=== PATIENT | female | born 1975 | race African-American/Black ===

== ENCOUNTER 2018-03-08 15:21 | Emergency (ER) | payer OTHER ==
--- NOTE | 2018-03-08 16:20 | RAD ---
INDICATION: Chest pain. COMPARISON: There are no prior studies available for comparison. TECHNIQUE: Dual-energy PA and lateral views of the chest were obtained. FINDINGS: The heart is within normal limits in size. Mediastinal and hilar contours appear within normal limits. The lungs are clear. No pleural effusion or pneumothorax is seen. IMPRESSION: NO EVIDENCE FOR ACTIVE CARDIOPULMONARY DISEASE.
[2018-03-08 17:05] LABS: ABS Basophils 0.1 10^3/ul (0-0.2); ABS Eosinophils 0 10^3/ul (0-0.6); ABS Lymphocytes 2.2 10^3/ul (1.0-4.8); ABS Monocytes 0.4 10^3/ul (0-0.8); ABS Neutrophils 7.2 10^3/ul (1.5-7.7); ABS Nucleated RBC 0 10^3/ul; Eosinophil % 0.4 % (0-6); Hematocrit 39 % (35-47); Hemoglobin 13.4 g/dl (12.0-16.0); Lymphocyte % 22.6 % (25-47); Mean Corpuscular HGB Conc 34 g/dl (31-36); Mean Corpuscular Hemoglobin 31 pg (27-31); Mean Corpuscular Volume 89 fL (80-97); Mean Platelet Volume 6.8 um3 (7.4-10.4); Nucleated Red Blood Cells % 0.1; Platelet Count 327 10^3/ul (150-450); Red Blood Count 4.37 10^6/ul (4.0-5.4); Red Cell Distribution Width 13 % (10.5-15)
[2018-03-08 17:09] LABS: EGFR Non-African American 82.6 (>60)
[2018-03-08] MEDS ORDERED: Famotidine TAB* 20 MG PO ONE (17:12)
[2018-03-08] MEDS ORDERED: Al Hydrox/Mg Hydrox/Simet LIQ* 30 ML UDC PO ONE (17:12)
[2018-03-08] MEDS ORDERED: Aspirin 81 mg CHEW TAB* 81 MG TAB.CHEW PO ONE (17:13)
--- NOTE | 2018-03-08 18:21 | ED ---
Markus Ma Thomas, scribed for Rommel Vega MD on 03/08/18 at 1712 . HPI Chest Pain - HPI Summary HPI Summary: The patient is a 42 year old female who was leaving a meeting today when she began to experience chest pain. The pain is worsened with touch. Past medical history includes esophageal burn due to taking Zoloft. She describes her current pain as similar to the prior esophageal burn pain. The patient also complains jaw pain and feeling woozy. The patient denies back pain, weight gain, or weight loss. - History of Current Complaint Chief Complaint: EDChestPainROMI Time Seen by Provider: 03/08/18 17:03 Hx Obtained From: Patient Onset/Duration: Started Hours Ago, Still Present Timing: Constant Current Severity: Mild Pain Intensity: 2 Pain Scale Used: 0-10 Numeric Chest Pain Radiates: Yes Chest Pain Radiates To:: Jaw Associated Signs and Symptoms: Positive: Negative - back pain, weight gain, weight loss, Other: - Jaw pain - Allergy/Home Medications Allergies/Adverse Reactions: Allergies Allergy/AdvReac Type Severity Reaction Status Date / Time No Known Allergies Allergy Verified 07/08/17 09:41 Home Medications: Home Medications Ascorbic Acid TAB* [Vitamin C TAB*] 500 mg PO DAILY 03/08/18 [History Confirmed 03/08/18] Multivitamins/Minerals TAB* [Theragran/minerals TAB*] 1 tab PO DAILY 03/08/18 [ History Confirmed 03/08/18] PMH/Surg Hx/FS Hx/Imm Hx Endocrine/Hematology History: Denies: Hx Diabetes Cardiovascular History: Denies: Hx Hypercholesterolemia, Hx Hypertension Sensory History: Denies: Hx Legally Blind Infectious Disease History: No Infectious Disease History: Denies: Traveled Outside the [place] in Last 30 Days - Family History Known Family History: Negative: Cardiac Disease - Social History Occupation: Employed Full-time Alcohol Use: None Substance Use Type: Reports: None Hx Tobacco Use: Yes Smoking Status (MU): Heavy Every Day Tobacco Smoker Type: Cigarettes Amount Used/How Often: 10 A DAY Length of Time of Smoking/Using Tobacco: 17 Have You Smoked in the Last Year: Yes Review of Systems Negative: Fever, Other - weight pain or loss Positive: Chest Pain Positive: Other - Jaw pain; NEGATIVE: back pain All Other Systems Reviewed And Are Negative: Yes Physical Exam - Summary Physical Exam Summary: Appearance: Well appearing, no pain distress Skin: warm, dry, reflects adequate perfusion Head/face: normal Eyes: EOMI, EVARISTO ENT: normal Neck: supple, non-tender Respiratory: CTA, breath sounds present Cardiovascular: RRR, pulses symmetrical Chest: Slightly reproduced tenderness in anterior chest. Abdomen: non-tender, soft Bowel Sounds: present Musculoskeletal: normal, strength/ROM intact Neuro: normal, sensory motor intact, A&Ox3 Triage Information Reviewed: Yes Vital Signs On Initial Exam: Initial Vitals Temp Pulse Resp BP Pulse Ox 97.8 F 84 16 117/86 95 03/08/18 15:24 03/08/18 15:24 03/08/18 15:24 03/08/18 15:24 03/08/18 15:24 Vital Signs Reviewed: Yes Diagnostics - Vital Signs Vital Signs Temp Pulse Resp BP Pulse Ox 03/08/18 16:48 98.6 F 70 20 118/86 100 03/08/18 15:24 97.8 F 84 16 117/86 95 - Laboratory Lab Results: Lab Results 03/08/18 Range/Units 16:35 WBC 10.0 (3.5-10.8) 10^3/ul RBC 4.37 (4.0-5.4) 10^6/ul Hgb 13.4 (12.0-16.0) g/dl Hct 39 (35-47) % MCV 89 (80-97) fL MCH 31 (27-31) pg MCHC 34 (31-36) g/dl RDW 13 (10.5-15) % Plt Count 327 (150-450) 10^3/ul MPV 6.8 L (7.4-10.4) um3 Neut % (Auto) 72.4 (38-83) % Lymph % (Auto) 22.6 L (25-47) % [place] % (Auto) 3.9 (0-7) % Eos % (Auto) 0.4 (0-6) % Baso % (Auto) 0.7 (0-2) % Absolute Neuts (auto) 7.2 (1.5-7.7) 10^3/ul Absolute Lymphs (auto) 2.2 (1.0-4.8) 10^3/ul Absolute Monos (auto) 0.4 (0-0.8) 10^3/ul Absolute Eos (auto) 0 (0-0.6) 10^3/ul Absolute Basos (auto) 0.1 (0-0.2) 10^3/ul Absolute Nucleated RBC 0 10^3/ul Nucleated RBC % 0.1 Result Diagrams: 03/08/18 16:35 03/08/18 16:35 Lab Statement: Any lab studies that have been ordered have been reviewed, and results considered in the medical decision making process. - Radiology CXR Xray Interpretation: No Acute Changes - Impression: No active cardiopulmonary disease. Dr. Vega has reviewed this report. Radiology Interpretation Completed By: Radiologist - EKG 15:29 Cardiac Rate: NL EKG Rhythm: Sinus Rhythm - at 78 BPM EKG Interpretation: Normal axis, normal intervals, and normal ST. Poor R wave progression. Re-Evaluation - Re-Evaluation First Eval Re-Evaluation Time: 18:07 Change: Improved Comment: She does not have any symptoms at this time. Chest Pain Course/Dx - Course Course Of Treatment: HEART score is 1. THOMAS risk index is 10 (low risk). EKG is wnl. Labs are benign. Pt has a hx of esophagitis and pain feels "exactly the same." It is sharp and spasmotic in the xiphoid area. Her sx have relieved here and she would like to discharge. Rx for pepcid/carafate that helped her in the past. Low risk from HEART/THOMAS standpoint. D/C to f/u with PMD. - Chest Pain Differential Diagnosis/HQI/PQRI: Acute LA, ACS, Angina, CHF, Chest Wall, GI Disease, Lower Respiratory Infection - Diagnoses Provider Diagnoses: Atypical chest pain, Esophagitis Discharge - Sign-Out/Discharge Documenting (check all that apply): Discharge - Discharge Plan Condition: Stable Disposition: HOME Prescriptions: Famotidine TAB* [Pepcid 20 MG TAB*] 20 mg PO BID #20 tab Sucralfate [Carafate] 1 gm PO QID #40 tablet Patient Education Materials: Chest Pain (ED), Corrosive Esophagitis (ED), Esophageal Spasm (ED) Referrals: Michelle Calix NP [Primary Care Provider] - Additional Instructions: [place] diet. Avoid caffeine, acidic foods, alcohol. Cut back on smoking. Return if worse, new symptoms or other concerns. - Billing Disposition and Condition Condition: STABLE Disposition: HOME The documentation as recorded by the Markus knight Thomas accurately reflects the service I personally performed and the decisions made by me, Rommel Vega MD.
[2018-03-08 18:42] VITALS: BP 125/78
== END 2018-03-08 18:40 | disposition home or self-care (01) ==
LOC: ED 15:21
DX: R07.89 Other chest pain (principal); K20.9 Esophagitis, unspecified; F17.210 Nicotine dependence, cigarettes, uncomplicated
CPT/HCPCS: 36415; 71046; 80053; 83605; 84484; 85025; 93005; 99282